=== PATIENT | male | born 1990 | race Caucasian/White ===

== ENCOUNTER 2018-12-15 19:08 | Emergency (ER) | payer BC, MEDICAID ==
--- NOTE | 2018-12-15 21:37 | ED Physician Documentation ---
PD HPI URI - Stated complaint Stated Complaint: THROAT PX/FEVER - Chief complaint Chief Complaint: Heent - History obtained from History obtained from: Patient - History of Present Illness Timing - onset: How many days ago (1) Timing duration: Days (1) Timing details: Abrupt onset, Still present Associated symptoms: Fever, Sore throat, Swollen nodes. No: Nasal congestion, Rhinorrhea, Dry cough Contributing factors: Sick contact (child in household has test positive strep throat and is on abx a few days ago. Patient now with sore throat and fever.) Similar symptoms before: Has not had sx before Recently seen: Not recently seen Review of Systems Constitutional: reports: Fever, Chills, Myalgias Nose: denies: Rhinorrhea / runny nose, Congestion Throat: reports: Sore throat Respiratory: denies: Cough GI: denies: Abdominal Pain, Nausea, Vomiting, Diarrhea Skin: denies: Rash PD PAST MEDICAL HISTORY - Past Medical History Cardiovascular: None Respiratory: None Neuro: None Endocrine/Autoimmune: None - Past Surgical History Past Surgical History: Yes - Present Medications Home Medications: Ambulatory Orders Medication Instructions Recorded Confirmed Amoxicillin 500 mg PO TID #21 capsule 12/15/18 Buprenorphine HCl/Naloxone HCl 1 film DAILY 12/15/18 12/15/18 [Suboxone 8 mg-2 mg Sl Film] Dexamethasone [Decadron] 4 mg PO DAILY #5 tablet 12/15/18 - Allergies Allergies/Adverse Reactions: Allergies Allergy/AdvReac Type Severity Reaction Status Date / Time No Known Drug Allergies Allergy Verified 12/15/18 19:32 - Social History Does the pt smoke?: No Smoking Status: Never smoker Does the pt drink ETOH?: Yes Does the pt have substance abuse?: No PD ED PE NORMAL - Vitals Vital signs reviewed: Yes - General General: Alert and oriented X 3, No acute distress, Well developed/nourished - HEENT HEENT: No: Pharynx benign (red tonsils with exudate and swelling; no peritonsillar edema. ) - Neck Neck: Supple, no meningeal sign, Other (anterior tender adenopathy) - Cardiac Cardiac: RRR, No murmur - Respiratory Respiratory: Clear bilaterally Results - Vitals Vitals: Oxygen O2 Source Room air - Labs Labs: Laboratory Tests 12/15/18 19:30 Group A Strep Rapid POSITIVE H Departure - Departure Disposition: 01 Home, Self Care Clinical Impression: Acute streptococcal tonsillitis Qualifiers: Streptococcal tonsillitis recurrence: non-recurrent Qualified Code(s): J03.00 - Acute streptococcal tonsillitis, unspecified Condition: Stable Record reviewed to determine appropriate education?: Yes Instructions: ED Strep Pharyngitis Conf Prescriptions: Amoxicillin 500 mg PO TID #21 capsule Dexamethasone [Decadron] 4 mg PO DAILY #5 tablet Comments: Drink lots of fluids. Ibuprofen or naproxen as needed for pain and inflammation. Add Tylenol if needed for pain. Decadron steroid daily for 5 more days. Amoxicillin 3 times a day for a week for the strep infection. Recheck if not improving over the next few days. He will be less infectious after a day on the antibiotics. Discharge Date/Time: 12/15/18 22:04
[2018-12-15] MEDS: DEXAMETHASONE 10 MG/ML VIAL PO STA (21:59)
[2018-12-15] MEDS: AMOXICILLIN 250 MG CAPSULE PO STA (22:00)
[2018-12-15] MEDS: ACETAMINOPHEN 325 MG TABLET PO STA (22:00)
[2018-12-15 22:03] VITALS: BP 117/66
== END 2018-12-15 22:04 | disposition home or self-care (01) ==
LOC: ED 19:08
DX: J03.00 Acute streptococcal tonsillitis, unspecified (principal)
CPT/HCPCS: 87430; 99283

== ENCOUNTER 2019-08-18 11:31 | Outpatient (CLI) | payer MEDICAID ==
[2019-08-18 12:03] LABS: BASOPHILS % (AUTO) 0.9 %; EOSINOPHILS # (AUTO) 0.1 10^3/uL (0.0-0.7); EOSINOPHILS % (AUTO) 2.2 %; HGB - HEMOGLOBIN 15.8 g/dL (14.0-18.0); LYMPHOCYTES # (AUTO) 1.4 10^3/uL (1.5-3.5); LYMPHOCYTES % (AUTO) 30.2 %; MEAN CORPUSCULAR HEMOGLOBIN 28.9 pg (27.0-31.0); MEAN CORPUSCULAR HGB CONC 33.6 g/dL (32.0-36.0); MEAN CORPUSCULAR VOLUME 86.1 fL (80.0-94.0); MEAN PLATELET VOLUME 9.6 fL (7.4-11.4); MONOCYTES # (AUTO) 0.5 10^3/uL (0.0-1.0); MONOCYTES % (AUTO) 10.3 %; NEUTROPHILS # (AUTO) 2.6 10^3/uL (1.5-6.6); PLT - PLATELET COUNT 281 10^3/uL (130-450); RED BLOOD COUNT 5.46 10^6/uL (4.70-6.10); RED CELL DISTRIBUTION WIDTH 12.1 % (12.0-15.0); WHITE BLOOD COUNT 4.6 x10^3/uL (4.8-10.8)
[2019-08-18 12:20] LABS: ALBUMIN 4.4 g/dL (3.2-5.5); BILIRUBIN,DIRECT 0.1 mg/dL (0.1-0.5); BILIRUBIN,TOTAL 1.1 mg/dL (0.2-1.0); CALCIUM 9.1 mg/dL (8.5-10.3); CREATININE 0.9 mg/dL (0.6-1.2); TOTAL PROTEIN 7.4 g/dL (6.7-8.2)
[2019-08-19 11:22] LABS: HEPATITIS B SURFACE ANTIGEN NON-REACTIVE (NON-REACTIVE)
[2019-08-19 15:46] LABS: HIV AG/AB 4TH GEN NON-REACTIVE (NON-REACTIVE)
[2019-08-22 14:01] LABS: HEPATITIS C VIRAL RNA GENOTYPE NOT DETECTED
== END 2019-08-18 11:32 | disposition home or self-care (01) ==
LOC: LAB 11:31
PROVIDERS: ATTEND Family Medicine
DX: F11.20 Opioid dependence, uncomplicated (principal)
CPT/HCPCS: 36415; 80048; 80076; 81599; 85025; 86592; 86704; 86705; 86708; 86709; 87340; 87389; 87902

== ENCOUNTER 2020-05-03 13:40 | Emergency (ER) | payer MEDICAID ==
[2020-05-03 14:26] LABS: BASOPHILS % (AUTO) 0.3 %; EOSINOPHILS # (AUTO) 0.2 10^3/uL (0.0-0.7); EOSINOPHILS % (AUTO) 1.5 %; HGB - HEMOGLOBIN 14.4 g/dL (14.0-18.0); LYMPHOCYTES # (AUTO) 1.5 10^3/uL (1.5-3.5); LYMPHOCYTES % (AUTO) 12.4 %; MEAN CORPUSCULAR HEMOGLOBIN 28.7 pg (27.0-31.0); MEAN CORPUSCULAR HGB CONC 33.1 g/dL (32.0-36.0); MEAN CORPUSCULAR VOLUME 86.7 fL (80.0-94.0); MEAN PLATELET VOLUME 9.8 fL (7.4-11.4); MONOCYTES # (AUTO) 0.6 10^3/uL (0.0-1.0); NEUTROPHILS # (AUTO) 9.8 10^3/uL (1.5-6.6); NEUTROPHILS % (AUTO) 80.4 %; PLT - PLATELET COUNT 256 10^3/uL (130-450); RED BLOOD COUNT 5.02 10^6/uL (4.70-6.10); RED CELL DISTRIBUTION WIDTH 11.8 % (12.0-15.0); WHITE BLOOD COUNT 12.1 x10^3/uL (4.8-10.8)
[2020-05-03 14:30] LABS: BILIRUBIN,URINE NEGATIVE (NEGATIVE); GLUCOSE, URINE (UA) NEGATIVE (NEGATIVE); KETONES,URINE (UA) NEGATIVE (NEGATIVE); LEUKOCYTE ESTERASE, URINE NEGATIVE (NEGATIVE); NITRITE,URINE NEGATIVE (NEGATIVE); OCCULT BLOOD,URINE NEGATIVE (NEGATIVE); PROTEIN,URINE NEGATIVE (NEGATIVE); UROBILINOGEN,URINE 0.2 (NORMAL) E.U./dL (NORMAL)
[2020-05-03 14:31] LABS: CLARITY,URINE CLEAR (CLEAR)
--- NOTE | 2020-05-03 14:33 | ED Physician Documentation ---
PD HPI GI BLEED - Stated complaint Stated Complaint: BLOODY STOOL/VOMIT - Chief complaint Chief Complaint: Abd Pain - History obtained from History obtained from: Patient - History of Present Illness Timing - onset: Enter time, How many weeks ago (3) Timing - details: Gradual onset Pain level max: 0 Pain level now: 9 Associated symptoms: Vomiting, BRBPR, Constipation Improved by: Other (deficating) Similar symptoms before: Diagnosis, Has not had sx before Recently seen: Clinic - Additional information Additional information: 29-year-old male presents to the emergency department with chief complaint of lower abdominal pain and bloody mucoid stools. Patient states that for about the last 3 weeks he has been having lower abdominal pain that gets progressively worse until he is able to have a bowel movement. In general though his bowel movements are constipated. However he is occasionally noted that after defecating he has some bloody mucoid discharge. In order to manage the pain before he defecates he has been taking leftover Percocet and Vicodin. This morning he felt nauseated and vomited. There was some blood-tinged vomit but no rickey hematemesis. Patient has been taking ibuprofen for the lower abdominal pain but stopped because he felt it was not working. He denies alcohol use. He does vape. He has no pertinent past surgical history in his abdomen. Patient saw his primary care provider Dr. Mullen about this concern last week. Dr. Mullen ordered routine blood work however patient has not yet completed that. The pain was severe enough this morning that he came to the emergency department. Review of Systems Constitutional: denies: Fever, Chills Cardiac: denies: Chest pain / pressure, Palpitations Respiratory: denies: Dyspnea GI: reports: Abdominal Pain, Nausea, Constipation. denies: Diarrhea, Hematemesis : denies: Dysuria, Frequency Skin: denies: Rash, Lesions Neurologic: denies: Focal weakness PD PAST MEDICAL HISTORY - Past Medical History Past Medical History: Yes Cardiovascular: None Respiratory: None Neuro: None Endocrine/Autoimmune: None - Past Surgical History Past Surgical History: Yes - Present Medications Home Medications: Ambulatory Orders Medication Instructions Recorded Confirmed Amoxicillin 500 mg PO TID #21 capsule 12/15/18 Buprenorphine HCl/Naloxone HCl 1 film DAILY 12/15/18 12/15/18 [Suboxone 8 mg-2 mg Sl Film] dexAMETHasone [Decadron] 4 mg PO DAILY #5 tablet 12/15/18 Amox/Clav 875/125 [Augmentin] 1 each PO Q12H #20 tablet 05/03/20 - Allergies Allergies/Adverse Reactions: Allergies Allergy/AdvReac Type Severity Reaction Status Date / Time No Known Drug Allergies Allergy Verified 05/03/20 13:52 - Social History Does the pt smoke?: No Smoking Status: Never smoker Does the pt drink ETOH?: Yes Does the pt have substance abuse?: No - Immunizations Immunizations are current?: No Immunizations: TDAP >10years/unknown - POLST Patient has POLST: No PD ED PE NORMAL - General General: Alert and oriented X 3, No acute distress, Well developed/nourished - HEENT HEENT: PERRL, EOMI - Neck Neck: No bony TTP, No adenopathy - Cardiac Cardiac: RRR, No murmur - Respiratory Respiratory: No respiratory distress - Abdomen Abdomen: Normal bowel sounds, Soft, Other (focal tenderness RLQ and LLQ. negative [place]burney's, psoas and [place]) - Rectal Rectal: Deferred - Back Back: No CVA TTP - Extremities Extremities: No deformity, No edema - Neuro Neuro: Alert and oriented X 3, line lead 2-12 intact, No motor deficit Results - Vitals Vitals: Vital Signs - 24 hr 05/03/20 05/03/20 13:52 13:55 Temperature 36.7 C 36.7 C Heart Rate 77 77 Respiratory 15 15 Rate Blood Pressure 128/62 128/62 O2 Saturation 97 97 Oxygen O2 Source Room air - Labs Labs: Laboratory Tests 05/03/20 05/03/20 05/03/20 14:15 14:19 14:19 WBC 12.1 H RBC 5.02 Hgb 14.4 Hct 43.5 MCV 86.7 MCH 28.7 MCHC 33.1 RDW 11.8 L Plt Count 256 MPV 9.8 Neut # (Auto) 9.8 H Lymph # (Auto) 1.5 Bond # (Auto) 0.6 Eos # (Auto) 0.2 Baso # (Auto) 0.0 Absolute Nucleated RBC 0.00 Nucleated RBC % 0.0 Sodium 138 Potassium 3.4 L Chloride 102 Carbon Dioxide 30 Anion Gap 6.0 BUN 13 Creatinine 0.7 Estimated GFR (MDRD) 132 Glucose 116 H Lactic Acid Calcium 8.9 Total Bilirubin 0.9 AST 44 H ALT 49 Alkaline Phosphatase 49 Total Protein 7.1 Albumin 4.2 Globulin 2.9 Albumin/Globulin Ratio 1.4 Lipase 36 Urine Color YELLOW Urine Clarity CLEAR Urine pH 5.0 Ur Specific [place] >=1.030 H Urine Protein NEGATIVE Urine Glucose (UA) NEGATIVE Urine Ketones NEGATIVE Urine Occult Blood NEGATIVE Urine Nitrite NEGATIVE Urine Bilirubin NEGATIVE Urine Urobilinogen 0.2 (NORMAL) Ur Leukocyte Esterase NEGATIVE Ur Microscopic Review NOT INDICATED Urine Culture Comments NOT INDICATED 05/03/20 14:42 WBC RBC Hgb Hct MCV MCH MCHC RDW Plt Count MPV Neut # (Auto) Lymph # (Auto) Bond # (Auto) Eos # (Auto) Baso # (Auto) Absolute Nucleated RBC Nucleated RBC % Sodium Potassium Chloride Carbon Dioxide Anion Gap BUN Creatinine Estimated GFR (MDRD) Glucose Lactic Acid 1.2 Calcium Total Bilirubin AST ALT Alkaline Phosphatase Total Protein Albumin Globulin Albumin/Globulin Ratio Lipase Urine Color Urine Clarity Urine pH Ur Specific [place] Urine Protein Urine Glucose (UA) Urine Ketones Urine Occult Blood Urine Nitrite Urine Bilirubin Urine Urobilinogen Ur Leukocyte Esterase Ur Microscopic Review Urine Culture Comments - Rads (name of study) CT abd/pelvis Radiology: Final report received (Mild thickened appearance within the sigmoid colon. There is no damion-colonic inflammatory change. Thickening could be secondary to incomplete distention, however early colitis cannot be excluded.) PD MEDICAL DECISION MAKING - ED course Complexity details: reviewed results, d/w patient ED course: 29-year-old male presents to the emergency department with chief complaint of 3 weeks lower abdominal pain. Occasionally he has some blood streaking on his stools with reported mucoid appearance of the stool. - Labs revealed a mild leukocytosis without significant left shift. The rest of his chemistry was unremarkable. CT scan shows mild pericolonic thickening appearance may be consistent with colitis. Given 3 weeks of pain with mild leukocytosis we will plan to discharge the patient with a short course of Augmentin. I recommend that he have close follow-up with his primary care doctor as colonoscopy is likely indicated. - I do have concern about his use of Vicodin or Percocet for control of his abdominal pain as he also reports some intermittent constipation. I have cautioned him against continued use of this. No prescription for opiates was provided today. - his abdominal exam is reassuring, though pain in the LLQ, non peritoneal. Vit al reassuring. No acute surgical process - discussed in detail the plan for abx, recommend fiber supplementation and hydration. f/u with pcp. Departure - Departure Disposition: 01 Home, Self Care Clinical Impression: Abdominal pain Qualifiers: Abdominal location: left lower quadrant Qualified Code(s): R10.32 - Left lower quadrant pain Condition: Stable Instructions: Abdominal Pain Follow-Up: KONRAD MULLEN MD [Primary Care Provider] - Prescriptions: Amox/Clav 875/125 [Augmentin] 1 each PO Q12H #20 tablet Comments: August, I hope that you feel better soon. The CT scan show some mild thickening appearance of your sigmoid colon. This may be some inflammation or infection. I am prescribing you a course of antibiotics. I would like you to stop taking Vicodin or Percocet for pain. It often contributes to constipation. Please increase your water and fiber intake. Based on the results of the CT scan your primary care doctor should consider referral for a colonoscopy. Please call and schedule a follow-up appointment for this emergency department visit within the next week. Return here if you have fevers suddenly severe worsening pain bright red-black or maroon-colored stools.
[2020-05-03 14:41] LABS: ALBUMIN 4.2 g/dL (3.2-5.5); ALBUMIN/GLOBULIN RATIO 1.4 (1.0-2.2); BILIRUBIN,TOTAL 0.9 mg/dL (0.2-1.0); CALCIUM 8.9 mg/dL (8.5-10.3); CREATININE 0.7 mg/dL (0.6-1.2); TOTAL PROTEIN 7.1 g/dL (6.7-8.2)
[2020-05-03] MEDS ORDERED: IOVERSOL 320 100 ML VIAL IVP ONE (14:50)
--- NOTE | 2020-05-03 15:34 | CT Report ---
PROCEDURE: Abdomen/Pelvis W INDICATIONS: lower abdominal pain; bloody mucoid stool CONTRAST: IV CONTRAST: Optiray 320 ml: 100 PO CONTRAST: *NO PO CONTRAST TECHNIQUE: After the administration of oral and intravenous contrast, 5 mm thick sections acquired from the diap hragms to the symphysis. 5 mm thick coronal and sagittal reformats were acquired. For radiation dos e reduction, the following was used: automated exposure control, adjustment of mA and/or kV accordin g to patient size. COMPARISON: None. FINDINGS: Image quality: Excellent. ABDOMEN: Lung bases: Lung bases are clear. Heart size is normal. Solid organs: Liver and spleen are normal in size. 8 mm anterior right hepatic lobe cyst is present . Mild steatosis is present. Gallbladder is unremarkable Biliary system is non dilated. Pancreas e nhances normally. No adrenal nodules. Kidneys demonstrate normal size and enhancement, without hydr onephrosis. Peritoneum and bowel: Bowel loops are nonobstructive. Scattered colonic diverticula are present. The re is a mildly thickened appearance and luminal narrowing within the mid sigmoid. No surrounding infl ammatory changes are identified. No free fluid or air. Appendix is normal. Nodes and vessels: No retroperitoneal or mesenteric adenopathy by size criteria. Aorta and inferior vena cava are normal in size. Miscellaneous: Fat-containing ventral hernia is present. PELVIS: Genitourinary: Bladder wall thickness is normal. Miscellaneous: No inguinal hernias or adenopathy. Bones: No suspicious bony lesions. No vertebral body compression fractures. IMPRESSION: 1. Mild thickened appearance within the sigmoid colon as above. There is no pericolonic inflammatory change. Thickening could be secondary to incomplete distention. However, very early colitis cannot be definitively excluded. In addition, as clinically indicated, colonoscopy is recommended for further evaluation, given history of bloody stools. Reviewed by: Antonia Narvaez MD on 05/03/2020 3:32 PM PDT Approved by: Antonia Narvaez MD on 05/03/2020 3:32 PM PDT Station ID: [id number]
[2020-05-03 16:12] VITALS: BP 108/71
== END 2020-05-03 16:15 | disposition home or self-care (01) ==
LOC: ED 13:40
DX: R10.30 Lower abdominal pain, unspecified (principal)
CPT/HCPCS: 36415; 74177; 80053; 81003; 83605; 83690; 85025; 99284; Q9967; 81001; 87086

== ENCOUNTER 2023-05-10 00:51 | Emergency (ER) | payer MEDICAID, OTHER ==
[2023-05-10 01:14] VITALS: BP 148/82
[2023-05-10] MEDS ORDERED: AMOX/CLAV 875 MG/125 MG TABLET PO STA (01:25)
--- NOTE | 2023-05-10 01:27 | ED Physician Documentation ---
PD HPI HEENT - Stated complaint Stated Complaint: TOOTH PX - Chief complaint Chief Complaint: General - History obtained from History obtained from: Patient - Additional information Additional information: Patient is a 32-year-old male presenting for evaluation of right lower dental pain that has been worsening for the past 2 days. Patient states that he has had a chipped tooth there that he knows needs attention but has not bothered him up until 2 days ago. No fever. Has been using Motrin and Tylenol without any significant improvement. Has had a similar issue on the left and was previously prescribed Augmentin which she states helped him. He has been to [facility] dental clinic In the past. Review of Systems Constitutional: denies: Fever Throat: reports: Dental pain / toothache Cardiac: denies: Chest pain / pressure Respiratory: denies: Dyspnea PD PAST MEDICAL HISTORY - Past Medical History Cardiovascular: None Respiratory: None Neuro: None Endocrine/Autoimmune: None - Past Surgical History Past Surgical History: Yes - Present Medications Home Medications: Ambulatory Orders Medication Instructions Recorded Confirmed Buprenorphine HCl/Naloxone HCl 1 film DAILY 12/15/18 05/10/23 [Suboxone 8 mg-2 mg Sl Film] Amox/Clav 875/125 [Augmentin] 1 each PO Q12H #20 tablet 05/10/23 - Allergies Allergies/Adverse Reactions: Allergies Allergy/AdvReac Type Severity Reaction Status Date / Time No Known Drug Allergies Allergy Verified 05/10/23 01:14 - Social History Does the pt smoke?: No Smoking Status: Never smoker Does the pt drink ETOH?: Yes Does the pt have substance abuse?: No - Immunizations Immunizations are current?: No Immunizations: TDAP >10years/unknown - POLST Patient has POLST: No PD ED PE NORMAL - General General: Alert and oriented X 3, No acute distress, Well developed/nourished - HEENT HEENT: Atraumatic, PERRL, EOMI, Moist mucous membranes, Pharynx benign (No oral swelling) - Neck Neck: Supple, no meningeal sign - Cardiac Cardiac: RRR - Respiratory Respiratory: No respiratory distress, Clear bilaterally - Neuro Neuro: Normal speech PD ED PE EXPANDED - HEENT HEENT Visual: 1 - deformity (cracked tooth) Results - Vitals Vitals: Vital Signs - 24 hr 05/10/23 01:09 Temperature 36.8 C Heart Rate 82 Respiratory 16 Rate Blood Pressure 148/82 H O2 Saturation 99 Oxygen O2 Source Room air PD Medical Decision Making - ED course ED course: Patient with dental pain. No visible abscess or deep space infection. Patient does have a cracked tooth that requires attention. Given worsening pain over 2 days will start on antibiotics for presumed infection. Patient is counseled on need to follow-up with dental clinic as well as concerning symptoms to return for. Departure - Departure Disposition: Home, Self Care Clinical Impression: Dental infection Condition: Stable Instructions: ED Tooth Pain Follow-Up: Minoo [place] [facility]] Prescriptions: Amox/Clav 875/125 [Augmentin] 1 each PO Q12H #20 tablet Comments: I am starting you on an antibiotic for a dental infection. I sent the prescription to [facility] in [place]. Please return to the emergency department with any worsening symptoms such as fever, swelling, increased pain or any new concerns. You do need close follow-up with a dentist. Please make sure you call first thing on Thursday morning to get an appointment. It is very important that you follow-up with a dentist. When it comes to dental problems like yours, the emergency department can only offer a short-term solution to your long-term problem. A couple of low cost options for dental care include: [facility] in [place], calls [phone] for an appointment Or [facility] in [place], call [phone] for an appointment.
== END 2023-05-10 01:45 | disposition home or self-care (01) ==
LOC: ED 00:51
DX: K08.9 Disorder of teeth and supporting structures, unspecified (principal)
CPT/HCPCS: 99282; 99283; A9270